=== PATIENT | male | born 1980 | race Hispanic/Latino ===

== ENCOUNTER 2025-08-16 14:56 | Outpatient (CLI) | payer OTHER | END 2025-08-16 14:57 | disposition home or self-care (01) | LOC: SCSMRI 14:56 | PROVIDERS: ATTEND Student in an Organized Health Care Education/Training Program | DX: M23.91 Unspecified internal derangement of right knee (principal); S83.211A Bucket-handle tear of medial meniscus, current injury, right knee, initial encounter; M25.461 Effusion, right knee; M65.961 Unspecified synovitis and tenosynovitis, right lower leg; M24.19 Other articular cartilage disorders, other specified site ==